=== PATIENT | male | born 1985 ===

== ENCOUNTER 2020-01-06 08:49 | Outpatient (REF) | payer MEDICAID, SELFPAY | END 2020-01-06 08:50 | disposition home or self-care (01) | LOC: HO.LAB 08:49 | PROVIDERS: Visit Provider Internal Medicine | DX: Z20.828 Contact with and (suspected) exposure to other viral communicable diseases (principal) | CPT/HCPCS: C9803; U0003 ==

== ENCOUNTER 2020-01-17 08:55 | Outpatient (REF) | payer MEDICAID, SELFPAY | END 2020-01-17 08:56 | disposition home or self-care (01) | LOC: HO.LAB 08:55 | PROVIDERS: Visit Provider Internal Medicine | DX: Z20.828 Contact with and (suspected) exposure to other viral communicable diseases (principal) | CPT/HCPCS: C9803; U0003 ==